=== PATIENT | female | born 1990 | race Caucasian/White ===

== ENCOUNTER 2018-07-09 11:14 | Outpatient (CLI) | payer MEDICAID | END 2018-07-09 23:59 | LOC: LAB.N 11:14 | PROVIDERS: ATTEND Nurse Practitioner | DX: I81 Portal vein thrombosis (principal) | CPT/HCPCS: 85610 ==

== ENCOUNTER 2018-07-12 11:26 | Outpatient (CLI) | payer MEDICAID | END 2018-07-12 23:59 | LOC: LAB.N 11:26 | PROVIDERS: ATTEND Nurse Practitioner | DX: I81 Portal vein thrombosis (principal) | CPT/HCPCS: 85610 ==

== ENCOUNTER 2018-07-14 14:31 | Outpatient (CLI) | payer MEDICAID | END 2018-07-14 23:59 | LOC: LAB.N 14:31 | PROVIDERS: ATTEND Nurse Practitioner | DX: I81 Portal vein thrombosis (principal) | CPT/HCPCS: 85610 ==

== ENCOUNTER 2018-07-19 08:00 | Outpatient (CLI) | payer MEDICAID | END 2018-07-19 23:59 | disposition home or self-care (01) | LOC: LAB.N 08:00 | PROVIDERS: ATTEND Nurse Practitioner | DX: I81 Portal vein thrombosis (principal) | CPT/HCPCS: 85610 ==

== ENCOUNTER 2018-07-21 08:00 | Outpatient (CLI) | payer MEDICAID | END 2018-07-21 23:59 | disposition home or self-care (01) | LOC: LAB.N 08:00 | PROVIDERS: ATTEND Nurse Practitioner | DX: I81 Portal vein thrombosis (principal) | CPT/HCPCS: 85610 ==

== ENCOUNTER 2018-07-26 11:52 | Outpatient (CLI) | payer MEDICAID | END 2018-07-26 23:59 | disposition home or self-care (01) | LOC: LAB.N 11:52 | PROVIDERS: ATTEND Nurse Practitioner | DX: I81 Portal vein thrombosis (principal) | CPT/HCPCS: 85610 ==

== ENCOUNTER 2018-07-29 08:00 | Outpatient (CLI) | payer MEDICAID | END 2018-07-29 23:59 | disposition home or self-care (01) | LOC: LAB.N 08:00 | PROVIDERS: ATTEND Nurse Practitioner | DX: I81 Portal vein thrombosis (principal) | CPT/HCPCS: 85610 ==

== ENCOUNTER 2018-08-03 17:25 | Emergency (ER) | payer MEDICAID ==
[2018-08-03] MEDS ORDERED: SODIUM CHLORIDE 0.9% 1,000 ML IV ONE ×2 (17:46)
[2018-08-03 18:22] LABS: BASOPHILS % (AUTO) 0.4 %; EOSINOPHILS % (AUTO) 0.4 %; HGB - HEMOGLOBIN 13.6 g/dL (12.0-16.0); LYMPHOCYTES # (AUTO) 2.4 10^3/uL (1.5-3.5); MEAN CORPUSCULAR HEMOGLOBIN 32.5 pg (27.0-31.0); MEAN CORPUSCULAR HGB CONC 33.8 g/dL (32.0-36.0); MEAN CORPUSCULAR VOLUME 96.1 fL (81.0-99.0); MEAN PLATELET VOLUME 7.9 fL (7.9-10.8); MONOCYTES # (AUTO) 0.3 10^3/uL (0.0-1.0); MONOCYTES % (AUTO) 4.1 %; NEUTROPHILS # (AUTO) 4.2 10^3/uL (1.5-6.6); NEUTROPHILS % (AUTO) 60.1 %; PLT - PLATELET COUNT 208 10^3/uL (130-450); RED BLOOD COUNT 4.18 10^6/uL (4.20-5.40); RED CELL DISTRIBUTION WIDTH 12.8 % (12.0-15.0)
[2018-08-03 18:29] LABS: INR 1.6 (0.8-1.2); PT - PROTHROMBIN TIME 18.2 secs (9.9-12.6)
[2018-08-03] MEDS ORDERED: IOVERSOL 320 100 ML VIAL IVP ONE (18:40)
[2018-08-03 18:56] LABS: ALBUMIN/GLOBULIN RATIO 1.4 (1.0-2.2); BILIRUBIN,TOTAL 0.6 mg/dL (0.2-1.0); CALCIUM 8.7 mg/dL (8.5-10.3); CREATININE 0.7 mg/dL (0.4-1.0); TOTAL PROTEIN 6.8 g/dL (6.7-8.2)
[2018-08-03 19:10] LABS: HCG,QUALITATIVE BLOOD NEGATIVE
--- NOTE | 2018-08-03 19:25 | ED Physician Documentation ---
PD HPI ABD PAIN - Stated complaint Stated Complaint: SYNCOPE - Chief complaint Chief Complaint: Abd Pain - History obtained from History obtained from: Patient, Family - History of Present Illness Timing - onset: Today Timing - duration: Days (1) Timing - details: Abrupt onset Pain level max: 8 Pain level now: 7 Quality: Cramping, Aching, Pain Location: Other (Cramping, suprapubic) Radiation: Other (non-radiating) Improved by: Other (nothing) Worsened by: Other (nothing) Associated symptoms: Vaginal bleeding. No: Fever, Nausea, Vomiting, Hematemes is, Diarrhea, Constipation, Melena, Hematochezia, Dysuria, Hematuria - Additional information Additional information: 27-year-old female who is on warfarin for a portal vein thrombosis, thought to be secondary to hormonal control. She states that she developed a very painful menses today which caused a vasovagal syncope event. This is happened to her in the past and this is similar to her normal menses prior to being on control pills. She felt lightheaded dizzy, turned pale and had her syncopal event. Did not strike her head. Has no head neck or back pain. Only lower abdominal cramping. Review of Systems Ten Systems: 10 systems reviewed and negative Constitutional: denies: Fever, Chills Throat: denies: Sore throat Cardiac: denies: Chest pain / pressure Respiratory: denies: Cough GI: denies: Vomiting, Diarrhea Skin: denies: Rash Musculoskeletal: denies: Neck pain, Back pain Neurologic: denies: Headache PD PAST MEDICAL HISTORY - Past Medical History Past Medical History: Yes Cardiovascular: None Respiratory: None Neuro: None Endocrine/Autoimmune: None GI: Chronic diarrhea, Chronic constipation IT TELECOM TECHNICIAN: Endometriosis : None HEENT: None Psych: Depression, Anxiety Musculoskeletal: None Derm: Other - Past Surgical History Past Surgical History: Yes General: Other /IT TELECOM TECHNICIAN: section - Allergies Allergies/Adverse Reactions: Allergies Allergy/AdvReac Type Severity Reaction Status Date / Time acetaminophen [From Percocet] AdvReac Nausea Verified 08/03/18 18:31 oxycodone [From Percocet] AdvReac Nausea Verified 08/03/18 18:31 - Social History Does the pt smoke?: No Smoking Status: Never smoker Does the pt drink ETOH?: No Does the pt have substance abuse?: No Substance Use and Type: Marijuana - Immunizations Immunizations are current?: Yes - POLST Patient has POLST: No PD ED PE NORMAL - Vitals Vital signs reviewed: Yes - General General: Alert and oriented X 3, No acute distress - HEENT HEENT: Atraumatic, PERRL, EOMI, Ears normal, Moist mucous membranes, Pharynx benign - Neck Neck: Supple, no meningeal sign, No bony TTP - Cardiac Cardiac: RRR, Strong equal pulses - Respiratory Respiratory: No respiratory distress, Clear bilaterally - Abdomen Abdomen: Soft, Non tender, Non distended - Female Female : Pt declined - Back Back: No spinal TTP - Derm Derm: Warm and dry - Extremities Extremities: No deformity, No tenderness to palpate, No edema, No calf tenderness / cord - Neuro Neuro: Alert and oriented X 3, implementation services analyst 2-12 intact, No motor deficit Eye Opening: Spontaneous Motor: Obeys Commands Verbal: Oriented GCS Score: 15 - Psych Psych: Normal mood, Normal affect Results - Vitals Vitals: Vital Signs - 24 hr 08/03/18 08/03/18 08/03/18 17:27 18:09 18:32 Temperature 36.1 C L Heart Rate 87 66 71 Respiratory 16 174 H 16 Rate Blood Pressure 136/120 H 112/74 111/71 O2 Saturation 99 98 96 08/03/18 08/03/18 08/03/18 19:39 20:23 20:43 Temperature 36.3 C L Heart Rate 81 78 81 Respiratory 19 18 Rate Blood Pressure 119/78 135/80 H 128/68 O2 Saturation 98 100 Oxygen O2 Source Room air - EKG (time done) 1806 Rate: Rate (enter#) (67) Rhythm: NSR [place]: Normal Intervals: Normal MO QRS: Normal Ischemia: Normal ST segments - Labs Labs: Laboratory Tests 08/03/18 08/03/18 08/03/18 18:12 18:12 18:12 WBC 7.0 RBC 4.18 L Hgb 13.6 Hct 40.1 MCV 96.1 MCH 32.5 H MCHC 33.8 RDW 12.8 Plt Count 208 MPV 7.9 Neut # (Auto) 4.2 Lymph # (Auto) 2.4 Nolan # (Auto) 0.3 Eos # (Auto) 0.0 Baso # (Auto) 0.0 Absolute Nucleated RBC 0.00 Nucleated RBC % 0.0 PT 18.2 H INR 1.6 H Sodium Potassium Chloride Carbon Dioxide Anion Gap BUN Creatinine Estimated GFR (MDRD) Glucose Calcium Total Bilirubin AST ALT Alkaline Phosphatase Total Protein Albumin Globulin Albumin/Globulin Ratio Lipase Serum HCG, Qual Blood Type Blood Type Recheck O POSITIVE Antibody Screen 08/03/18 08/03/18 08/03/18 18:28 18:28 18:28 WBC RBC Hgb Hct MCV MCH MCHC RDW Plt Count MPV Neut # (Auto) Lymph # (Auto) Nolan # (Auto) Eos # (Auto) Baso # (Auto) Absolute Nucleated RBC Nucleated RBC % PT INR Sodium 135 Potassium 3.7 Chloride 101 Carbon Dioxide 25 Anion Gap 9.0 BUN 10 Creatinine 0.7 Estimated GFR (MDRD) 100 Glucose 98 Calcium 8.7 Total Bilirubin 0.6 AST 27 ALT 25 Alkaline Phosphatase 51 Total Protein 6.8 Albumin 4.0 Globulin 2.8 Albumin/Globulin Ratio 1.4 Lipase 30 Serum HCG, Qual NEGATIVE Blood Type O POSITIVE Blood Type Recheck Antibody Screen NEGATIVE PD MEDICAL DECISION MAKING - ED course Complexity details: reviewed results, re-evaluated patient, considered differential, d/w patient, d/w family ED course: 27-year-old female presents to the emergency department with what appears to be an episode of vasovagal syncope secondary to dysmenorrhea. This is similar to her prior menses prior to being on control. She is now off control because of her portal vein thrombosis. She refuses any further workup or CT imaging at this time to evaluate other possible causes in her abdomen. She understands the risks of this. She is comfortable going home at this time. Her INR is also subtherapeutic and she will follow-up with her doctor tomorrow for dosing adjustment. Patient and family counseled regarding signs and symptoms for which I believe and urgent re-evaluation would be necessary. Patient with good understanding of and agreement to plan and is comfortable going home at this time This document was made in part using voice recognition software. While efforts are made to proofread this document, sound alike and grammatical errors may occur. Departure - Departure Disposition: 01 Home, Self Care Clinical Impression: Vasovagal syncope, Dysmenorrhea Condition: Good Instructions: ED Cramping Menstrual, ED Syncope Vasovagal Follow-Up: Leonel Cavazos PA-C [Primary Care Provider] - Within 3 Days Comments: Return if you worsen. Follow-up with your doctor for further care. You should contact your doctor tomorrow to discuss the adjustment of your warfarin. Your level was 1.6 tonight. Return if you change your mind about returning for imaging or further evaluation of your abdominal pain. Discharge Date/Time: 08/03/18 20:44
[2018-08-03] MEDS ORDERED: HYDROcod/ACETAM 5/325 MG TABLET PO STA (19:45)
[2018-08-03 20:44] VITALS: BP 128/68
== END 2018-08-03 20:44 | disposition home or self-care (01) ==
LOC: ED 17:25
DX: R55 Syncope and collapse (principal); N94.6 Dysmenorrhea, unspecified; I81 Portal vein thrombosis; Z79.01 Long term (current) use of anticoagulants
CPT/HCPCS: 36415; 80053; 83690; 84703; 85025; 85610; 86850; 86900; 86901; 93005; 96360; 96361; 99283; 99285; A9270

== ENCOUNTER 2018-08-11 08:00 | Outpatient (CLI) | payer MEDICAID | END 2018-08-11 23:59 | disposition home or self-care (01) | LOC: LAB.N 08:00 | PROVIDERS: ATTEND Nurse Practitioner | DX: I81 Portal vein thrombosis (principal) | CPT/HCPCS: 85610 ==

== ENCOUNTER 2018-08-18 13:56 | Outpatient (CLI) | payer MEDICAID | END 2018-08-18 23:59 | disposition home or self-care (01) | LOC: LAB.N 13:56 | PROVIDERS: ATTEND Nurse Practitioner | DX: I81 Portal vein thrombosis (principal) | CPT/HCPCS: 85610 ==

== ENCOUNTER 2018-08-27 11:32 | Outpatient (CLI) | payer MEDICAID | END 2018-08-27 23:59 | disposition home or self-care (01) | LOC: LAB.N 11:32 | PROVIDERS: ATTEND Nurse Practitioner | DX: I81 Portal vein thrombosis (principal) | CPT/HCPCS: 85610 ==

== ENCOUNTER 2018-08-31 14:22 | Outpatient (CLI) | payer MEDICAID | END 2018-08-31 14:23 | disposition home or self-care (01) | LOC: LAB.N 14:22 | PROVIDERS: ATTEND Nurse Practitioner | DX: I81 Portal vein thrombosis (principal) | CPT/HCPCS: 85610 ==

== ENCOUNTER 2018-09-09 11:52 | Outpatient (CLI) | payer MEDICAID | END 2018-09-09 23:59 | disposition home or self-care (01) | LOC: LAB.N 11:52 | PROVIDERS: ATTEND Nurse Practitioner | DX: I81 Portal vein thrombosis (principal) | CPT/HCPCS: 85610 ==

== ENCOUNTER 2018-09-17 08:00 | Outpatient (CLI) | payer MEDICAID | END 2018-09-17 23:59 | disposition home or self-care (01) | LOC: LAB.N 08:00 | PROVIDERS: ATTEND Nurse Practitioner | DX: I81 Portal vein thrombosis (principal) | CPT/HCPCS: 85610 ==

== ENCOUNTER 2018-10-11 10:09 | Outpatient (CLI) | payer MEDICAID ==
--- NOTE | 2018-10-19 11:10 | XRAY Report ---
Reason: chronic back pain [id number] Procedure Date: 10/11/2018 Accession Number: [id number] / [id number] Procedure: XRN - Thoracic Spine 3 View CPT Code: FULL RESULT: EXAM: THORACIC SPINE RADIOGRAPHY EXAM DATE: 10/11/2018 11:02 AM. CLINICAL HISTORY: Chronic back pain T10-T11. COMPARISON: None. TECHNIQUE: 3 views. FINDINGS: Alignment: There is a minimal thoracolumbar scoliosis in the form of a dextroconvex curvature centered about T5 followed by a levoconvex curvature centered about T11. No listhesis is noted. Bones: The bones are qualitatively osteopenic; this limits evaluation for underlying fractures or masses. No fractures or bone lesions. Disks: Normal. Disk heights are maintained. Soft Tissues: Normal. The visualized lungs and cardiomediastinal silhouette are normal. IMPRESSION: Minimal thoracolumbar S-shaped scoliosis. RADIA
== END 2018-10-11 10:10 | disposition home or self-care (01) ==
LOC: DI.N 10:09
PROVIDERS: ATTEND Physician Assistant Medical
DX: M41.84 Other forms of scoliosis, thoracic region (principal); M54.6 Pain in thoracic spine
CPT/HCPCS: 72072

== ENCOUNTER 2019-07-11 14:37 | Outpatient (CLI) | payer MEDICAID ==
--- NOTE | 2019-07-11 18:31 | XRAY Report ---
Reason: pneumonia Procedure Date: 07/11/2019 Accession Number: [id number] / [id number] Procedure: XRN - Chest 2 View X-Ray CPT Code: 52061 Final Report FULL RESULT: EXAM: CHEST RADIOGRAPHY EXAM DATE: 07/11/2019 02:56 PM. CLINICAL HISTORY: Pneumonia. COMPARISON: 10/11/2018 11:02 AM. TECHNIQUE: 2 views. FINDINGS: Lungs/Pleura: No dense consolidation. No large effusion or pneumothorax. No pulmonary edema. Mediastinum: Heart and mediastinal contours are unremarkable. Other: None. IMPRESSION: No acute radiographic pulmonary abnormalities. RADIA
== END 2019-07-11 14:38 | disposition home or self-care (01) ==
LOC: DI.N 14:37
PROVIDERS: ATTEND Physician Assistant Medical
DX: R09.89 Other specified symptoms and signs involving the circulatory and respiratory systems (principal); Z87.01 Personal history of pneumonia (recurrent)
CPT/HCPCS: 71046

== ENCOUNTER 2019-08-18 14:54 | Outpatient (CLI) | payer MEDICAID ==
[2019-08-18 18:41] LABS: HGB - HEMOGLOBIN 12.9 g/dL (12.0-16.0); MEAN CORPUSCULAR HEMOGLOBIN 30.5 pg (27.0-31.0); MEAN CORPUSCULAR HGB CONC 32.3 g/dL (32.0-36.0); MEAN CORPUSCULAR VOLUME 94.6 fL (81.0-99.0); MEAN PLATELET VOLUME 11.4 fL (7.9-10.8); RED BLOOD COUNT 4.23 10^6/uL (4.20-5.40); RED CELL DISTRIBUTION WIDTH 14.2 % (12.0-15.0); WHITE BLOOD COUNT 5.7 x10^3/uL (4.8-10.8)
[2019-08-18 18:54] LABS: BUN - BLOOD UREA NITROGEN 10 mg/dL (6-20); CALCIUM 9.2 mg/dL (8.5-10.3); CARBON DIOXIDE - CO2 26 mmol/L (21-32); CHLORIDE 102 mmol/L (101-111); CREATININE 0.6 mg/dL (0.4-1.0); GFR - MDRD 119 (>89); GLUCOSE 89 mg/dL (70-100); SODIUM 137 mmol/L (135-145); URIC ACID 2.6 mg/dL (2.6-7.2)
[2019-08-18 19:18] LABS: CRP - C-REACTIVE PROTEIN < 1.0 mg/dL (0-1.0)
[2019-08-18 19:25] LABS: RHEUMATOID FACTOR NEGATIVE (Negative)
[2019-08-20 10:03] LABS: ANA SCREEN NEGATIVE (NEGATIVE)
== END 2019-08-18 23:59 | disposition home or self-care (01) ==
LOC: LAB.N 14:54
PROVIDERS: ATTEND Physician Assistant Medical
DX: M25.50 Pain in unspecified joint (principal)
CPT/HCPCS: 36415; 80048; 84550; 85027; 85651; 86038; 86140; 86200; 86430